=== PATIENT | female | born 1985 | race Caucasian/White ===

== ENCOUNTER 2016-10-20 01:40 | Emergency (ER) | payer BC ==
[~2016-10-20 01:40] MED LIST: AMBIEN DPS10 MG PO; BRINTELLIX10 MG PO; CIPRO DPS500 MG PO; FLAGYL-DPS500 MG PO; MAALOX DPS30 ML PO; MICRO-K DPS10 MEQ PO; PEPCID DPS20 MG PO; SURFAK DPS240 MG PO; TYLENOL DPS325 MG PO; ULTRAM DPS50 MG PO; XANAX DPS0.25 MG PO
--- NOTE | 2016-10-22 12:34 | NUR ---
Received SAD person referral. Attempted to contact pt. No answer, voice mail message left.
--- NOTE | 2016-10-23 11:13 | NUR ---
Attempted to contact pt. No answer, voice mail message left.
--- NOTE | 2016-10-24 08:25 | ER ---
ADMIT: 10/20/2016 RM/LOC: ER [facility] MR#: [id number] [address] [id number] COLETTE WOODSON [address] [place], [place] [id number] Emergency Room Report SEX: F AGE: 31 : 1985 DATE: 10/20/2016 See T-sheet for complete H and P. ADDENDUM: A 31-year-old female, the father brings in for concerns of altered level of consciousness with likely alcohol intake and concerned she might have taken some pills also. She has a history of alcohol abuse and has been in treatment before and has no history of psychiatric illness or suicide attempt. She has not made any comments to family that she has had any suicidal ideation. She is obviously intoxicated on presentation to the point where she is not able to wake up and answer any questions for me at this time, and I get the history from father. He did bring in a bag full of small bottles that she apparently consumed within the past couple hours prior to arrival. They are 40 to 50 proof, small bottles of alcohol. She does take some prescription medications, one of those including Xanax. Because she is not able to give a history, I did check EPC and her CBC and chemistries were unremarkable. Her alcohol level was 281, and aspirin and acetaminophen were normal. Her tox screen was only positive for benzodiazepines, and her urine and urinalysis were negative. EKG showed sinus rhythm, rate of 97, no prolonged QT. The patient was given 2 L of normal saline while in the Emergency Department and after several hours, she did sober up to a point where she was safe to be discharged home. She is discharged home with her dad and given instructions to not drink in excess and she is strongly encouraged to seek help for her alcohol abuse. DIAGNOSES: 1. Alcohol intoxication. 2. Alcohol abuse. Pasha Carter MD/ tae JOB #: [id number] CC: Pasha Carter MD, Attending Physician Toño Sherman MD, Family Physician
== END 2016-10-20 07:00 | disposition home or self-care (01) ==
LOC: ER 01:40
DX: F10.129 Alcohol abuse with intoxication, unspecified (principal); F32.9 Major depressive disorder, single episode, unspecified; F41.9 Anxiety disorder, unspecified; Z88.8 Allergy status to other drugs, medicaments and biological substances; Z79.899 Other long term (current) drug therapy